=== PATIENT | female | born 1995 | race African-American/Black ===

== ENCOUNTER 2019-10-10 11:05 | Outpatient (CLI) | payer MEDICAID, SELFPAY ==
--- NOTE | ~2019-10-10 | XR_ITS ---
XR foot RT min 3V DATE: 10/10/2019 12:03 INDICATION: Right foot pain after twisting injury TECHNIQUE: 4 views COMPARISON: None FINDINGS: No fracture, dislocation, periosteal reaction or bone destruction. Joint spaces are preserv ed. IMPRESSION: Negative Reviewed, dictated and finalized at location B. LITY ADMINISTRATOR IMPRESSION: Negative
--- NOTE | ~2019-10-10 | XR_ITS ---
XR ankle RT min 3V DATE: 10/10/2019 12:03 INDICATION: Medial and lateral ankle pain after twisting injury TECHNIQUE: 4 views COMPARISON: None FINDINGS: There is no fracture or dislocation. The ankle mortise is intact. IMPRESSION: Negative Reviewed, dictated and finalized at location B. ING INFORMATICS ANALYST IMPRESSION: Negative
== END 2019-10-10 11:06 | disposition home or self-care (01) ==
DX: M79.89 Other specified soft tissue disorders (principal)
CPT/HCPCS: 73610; 73630

== ENCOUNTER 2020-05-13 06:00 | Emergency (ER) | payer OTHER, SELFPAY ==
--- NOTE | ~2020-05-13 | XR_ITS ---
EXAMINATION: XR knee LT min 4V DATE: 05/13/2020 06:32 INDICATION: Nonspecific left knee pain post fall TECHNIQUE: Anteroposterior, 2 oblique and crosstable lateral views of the left knee were obtained COMPARISON: None. FINDINGS: Alignment is normal. No fracture. No joint effusion/layering lipohemarthrosis. Soft tissues are unre markable. IMPRESSION: 1. Normal left knee radiographs. Reviewed, dictated and finalized at location A.
[2020-05-13 06:06] VITALS: BP 123/95; PULSE 107; RESP 19; TEMP 37.6; O2SAT 100
--- NOTE | 2020-05-13 06:16 | ED.LOWEXIN ---
HPI - Extremity Injury (Lower) General Chief Complaint: Extremity Injury, Lower Stated Complaint: Fell on leg, leg pain Time Seen by Provider: 05/13/20 06:10 History of Present Illness HPI Narrative: Patient is a 24-year-old female who presents ER with left knee pain. Patient was trying to step on a spider last night at 7 PM. She slipped, slammed her knee into the ground. Now has swelling. pain with ambulation. Related Data Allergies Allergy/AdvReac Type Severity Reaction Status Date / Time ibuprofen Allergy Severe Anaphylactic Verified 05/13/20 06:13 Shock Review of Systems Musculoskeletal: Musculoskeletal: Reports arthralgias, Reports joint swelling and Denies muscle cramps Neurologic: Denies focal weakness and Denies numbness PMF Past Medical History Medical History (Updated 05/13/20 @ 06:59 by Steven Barraza MD) Healthy adult Surgical History Surgical History (Updated 07/25/19 @ 21:57 by Seth Aguirre) No history of previous surgery Social History Social History (Updated 07/25/19 @ 21:57 by Seth Aguirre) Smoking status: Never smoker Exam Const: General: healthy appearing, no acute distress, well developed and alert Orientation/consciousness: patient oriented x3 Limitations: no limitations HENMT: Head: normocephalic and atraumatic Skin: General skin exam: normal color and no rashes or lesions noted Trauma: no lacerations or abrasions Wounds: no wounds Neuro: General: patient oriented x3 Speech: normal speech Extrem: Other: Left knee with effusion, limited ROM 2/2 pain, patella intact, TTP over patella and anterior joint line. Course Vital Signs Vital signs: Vital Signs Temperature 99.7 F H 05/13/20 06:06 Pulse Rate 107 H 05/13/20 06:06 Respiratory Rate 05/13/20 06:06 Blood Pressure 123/95 H 05/13/20 06:06 Pulse Oximetry 100 05/13/20 06:06 Temperature 99.7 F H 05/13/20 06:06 Pulse Rate 107 H 05/13/20 06:06 Respiratory Rate 05/13/20 06:06 Blood Pressure 123/95 H 05/13/20 06:06 Pulse Oximetry 100 05/13/20 06:06 MDM - Extremity Injury (Lower) Imaging Data Radiologist's impression: ITS Impressions Knee X-Ray 05/13/20 06:50 IMPRESSION: 1. Normal left knee radiographs. Discharge Plan Discharge Clinical Impression: Effusion of knee, Contusion of knee Patient Disposition: Home, Self-Care Condition: Stable Instructions: Antibiotic Form, Crutch Instructions (ED), R.I.C.E. Treatment (ED) Additional Instructions: Return to the ER if you have chest pain with shortness of breath, you have new injury, you cannot keep down food/water, or you have other concerns. Prescriptions: New hydrocodone-acetaminophen 5-325 mg tablet 1 tablet PO Q6H PRN (Reason: pain) Qty: 12 RF: 0 Follow-up/Referrals: MATTHEW,ZARA Hill, MSN ANP [Primary Care Provider] - 1 Week Stand Alone Forms: Work/School Release IP
[2020-05-13 07:25] VITALS: BP 116/74; PULSE 78; RESP 16; O2SAT 100
== END 2020-05-13 07:25 | disposition home or self-care (01) ==
PROVIDERS: Emergency Provider Emergency Medicine; PCP Nurse Practitioner Adult Health
DX: M25.462 Effusion, left knee (principal); S80.02XA Contusion of left knee, initial encounter; W01.0XXA Fall on same level from slipping, tripping and stumbling without subsequent striking against object, initial encounter
CPT/HCPCS: 73564; 99283